=== PATIENT | male | born 1990 | race Caucasian/White ===

== ENCOUNTER 2017-09-28 08:18 | Day surgery (SDC) | payer OTHER ==
[2017-09-20 11:16] LABS: BASOPHILS % (AUTO) 0.1 % (0-1); EOSINOPHILS # (AUTO) 0.3 X10'3 (0-0.9); EOSINOPHILS % (AUTO) 3.4 % (0-6); LYMPHOCYTES # (AUTO) 2.3 X10'3 (1.1-4.8); LYMPHOCYTES % (AUTO) 22.7 % (21-51); MEAN CORPUSCULAR HGB CONC 35.1 % (33.0-36.5); MEAN CORPUSCULAR VOLUME 85.5 FL (78-98); MEAN PLATELET VOLUME 8.8 FL (7.4-10.4); MONOCYTES # (AUTO) 0.6 X10'3 (0-0.9); MONOCYTES % (AUTO) 5.5 % (2-12); NEUTROPHILS # (AUTO) 6.9 X10'3 (1.8-7.7); NEUTROPHILS % (AUTO) 68.3 % (42-75); PRE OP HEMATOCRIT 43.3 % (42.0-52.0); PRE OP HEMOGLOBIN 15.2 g/dL (14.0-17.9); PRE OP PLATELET COUNT 256 X10'3 (140-440); RED BLOOD COUNT 5.06 X10'6 (4.70-6.10); RED CELL DISTRIBUTION WIDTH 13.1 % (11.5-14.5)
[2017-09-20 11:33] LABS: ALBUMIN/GLOBULIN RATIO 1.2 (1.1-1.5); ALKALINE PHOSPHATASE 95 IU/L (46-116); BLOOD UREA NITROGEN 14 MG/DL (7-18); BUN/CREATININE RATIO 13.2 (5.4-32.0); CALCIUM 8.6 MG/DL (8.5-10.1); CHLORIDE 106 MMOL/L (99-107); CREATININE 1.06 MG/DL (0.60-1.10); PRE OP ALT 47 U/L (30-65); PRE OP ANION GAP 10 (8-16); PRE OP AST 17 U/L (10-37); PRE OP BILIRUB, TOTAL 0.3 MG/DL (0.0-1.0); PRE OP GLUCOSE 109 MG/DL (70-104); PRE OP POTASSIUM 4.2 MMOL/L (3.4-5.1); PRE OP SODIUM 141 MMOL/L (135-145); TOTAL CARBON DIOXIDE 25.1 MMOL/L (24-32); TOTAL PROTEIN 7.4 G/DL (6.4-8.2); eGFR 84 ML/MIN
[~2017-09-28] VITALS: Ht 177.8 cm; Wt 154.9 kg
[2017-09-28] VITALS (7 sets, daily range): BP systolic 121–140; BP diastolic 59–88
[~2017-09-28 08:18] MED LIST: NAPR-1154 PO; VANCOMYCIN INJ 1000 MG in NORMAL SALINE 250ml IV.SOLN IV ONE; cefazolin/dext.iso 2gm/50ml 50 ML IV ONE; famotidine 20mg tablet PO ONE; ringers solution, lacted 1,000 ML IV SCH
[2017-09-28] MEDS ORDERED: LIDOcaine 1% (10mg/ml) 2ml vial ONE (08:33)
[2017-09-28] MEDS ORDERED: triamcinolone acetonide 40mg/ml inj ONE (09:31)
[2017-09-28] MEDS ORDERED: BUPIVAcaine/PF 2.5 mg/ml (0.25%) 30ml vial ONE (09:32)
[2017-09-28] MEDS ORDERED: sevoflurane 250ml liquid IH ONE (13:15)
[2017-09-28] MEDS ORDERED: midazolam 2 mg/2 ml injection ONE (13:41)
[2017-09-28] MEDS ORDERED: rocuronium 10mg/ml inj IV ONE (13:53)
[2017-09-28] MEDS ORDERED: propofol inj 20 ML IV ONE ×2 (13:53)
[2017-09-28] MEDS ORDERED: LIDOcaine 2% (20mg/ml) 5ml vial ONE (13:53)
[2017-09-28] MEDS ORDERED: fentaNYL/PF 50MCG/1 ML 2ML syringe ONE (14:13)
[2017-09-28] MEDS ORDERED: dexamethasone sod phosphate 4mg/ml inj. ONE (14:39)
[2017-09-28] MEDS ORDERED: ondansetron/PF 4mg/2ml inj ONE (14:39)
[2017-09-28] MEDS ORDERED: ringers solution, lacted 1,000 ML IV SCH (14:49)
[2017-09-28] MEDS ORDERED: meperidine/PF 50mg/ml syringe IV PRN ×3 (14:50)
[2017-09-28] MEDS ORDERED: acetaminophen 1,000mg/100ml IV 100 ML IV PRN (14:50)
[2017-09-28] MEDS ORDERED: proCHLORperazine 10 MG/2 ml inj IV PRN (14:50)
[2017-09-28] MEDS ORDERED: ondansetron/PF 4mg/2ml inj IV PRN (14:50)
[2017-09-28] MEDS ORDERED: ipratropium/albuterol 3ml nebule IH ONE (14:50)
[2017-09-28] MEDS ORDERED: morphine 2 MG/ML inj. syringe IV PRN ×2 (14:50)
[2017-09-28] MEDS ORDERED: HYDROcodone/acetaminophen 10/325mg tab PO ONE (15:25)
== END 2017-09-28 15:40 | disposition home or self-care (01) ==
LOC: PAS 08:18 → EDBD 11:30 → PAS 15:40
PROVIDERS: ATTEND Orthopaedic Surgery
DX: M22.41 Chondromalacia patellae, right knee (principal); S83.281A Other tear of lateral meniscus, current injury, right knee, initial encounter; S83.241A Other tear of medial meniscus, current injury, right knee, initial encounter; M17.11 Unilateral primary osteoarthritis, right knee; M25.361 Other instability, right knee; I10 Essential (primary) hypertension; E66.01 Morbid (severe) obesity due to excess calories; Z68.42 Body mass index [BMI] 45.0-49.9, adult; Z79.1 Long term (current) use of non-steroidal anti-inflammatories (NSAID); Z98.890 Other specified postprocedural states; X58.XXXA Exposure to other specified factors, initial encounter; Y93.9 Activity, unspecified; Y92.9 Unspecified place or not applicable; Y99.9 Unspecified external cause status
CPT/HCPCS: 29879; 29880; 36415; 80053; 85025; 93005; 94640; 94760; A6449; J0690; J1100; J2001; J2250; J2405; J2704; J3010; J3370; J3490; J7030; J7120; A6250; A7000; J3301